=== PATIENT | female | born 1950 | race Caucasian/White ===

== ENCOUNTER 2017-09-30 09:08 | Emergency (ER) | payer BC ==
[~2017-09-30] VITALS: Ht 167.6 cm; Wt 63.5 kg
[2017-09-30] MEDS ORDERED: BREO INHALER (09:30)
== END 2017-09-30 12:24 | disposition home or self-care (01) ==
LOC: FSED 09:08
DX: R07.89 Other chest pain (principal); R11.0 Nausea; J44.9 Chronic obstructive pulmonary disease, unspecified; F17.210 Nicotine dependence, cigarettes, uncomplicated
CPT/HCPCS: 71046; 71260; 80053; 81003; 82553; 83880; 84484; 85025; 85379; 93005; 99284

== ENCOUNTER 2017-10-01 10:51 | Observation (INO) | payer BC ==
[~2017-10-01] VITALS: Ht 167.6 cm; Wt 63.5 kg
[2017-10-01 07:00] VITALS: BP 140/69
[~2017-10-01 10:51] MED LIST: BREO INHALER
[2017-10-01] MEDS ORDERED: ONDANSETRON HCL 4 MG ORAL DISINTEGRATING TAB PO ONE (11:30)
[2017-10-01] MEDS ORDERED: MORPHINE SULFATE 4 MG/ML SYR IV STA (12:41)
[2017-10-01] MEDS ORDERED: MORPHINE SULFATE 2 MG/ML SYR IV PRN (13:15)
[2017-10-01] MEDS ORDERED: FAMOTIDINE 20 MG TAB PO SCH (13:15)
[2017-10-01] MEDS ORDERED: ASPIRIN 81 MG CHEW TAB PO ONE (13:15)
[2017-10-01] MEDS ORDERED: NITROGLYCERIN 0.4 MG SUBL SL PRN (13:15)
[2017-10-01 16:50] VITALS: BP 185/88
[2017-10-01 17:00] VITALS: BP 185/88
[2017-10-01 17:48] LABS: CREATINE KINASE 169 IU/L (29-168)
[2017-10-01] MEDS ORDERED: ALBUTEROL/IPRATROPIUM 3 ML NEB NEB PRN (18:00)
[2017-10-01] MEDS ORDERED: CLONIDINE HCL 0.1 MG TAB PO PRN (18:00)
[2017-10-01] MEDS ORDERED: ENOXAPARIN SOD INJ 40 MG/0.4 ML SYR SC SCH (18:00)
[2017-10-01 18:09] LABS: CHOL/HDL RATIO 3.4 (3.0-3.6)
--- NOTE | 2017-10-01 18:31 | Diagnostic Imaging Report ---
PROCEDURE: CHEST SINGLE (PORTABLE); 1806 hrs. COMPARISON: None. INDICATIONS: chest pain/headache FINDINGS: LUNGS: Well inflated and clear. No mass or infiltrate PLEURA: No effusions or pneumothorax. HEART \T\ MEDIASTINUM: The heart is within normal size-limits. BONES \T\ SOFT TISSUES: The bones are intact. Soft tissues are unremarkable. CONCLUSION: No acute cardiopulmonary process. Dictated by: Lian Gutierres M.D. on 10/01/2017 at 18:32 Electronically approved by: Lian Gutierres M.D. on 10/01/2017 at 18:32
[2017-10-01 19:00] VITALS: BP 140/69
[2017-10-01 21:30] VITALS: BP 140/69
[2017-10-01] MEDS ORDERED: ACETAMINOPHEN 325 MG TAB PO PRN (21:45)
[2017-10-02] MEDS: FAMOTIDINE 20 MG TAB PO SCH ×2 (00:11→11:47)
[2017-10-02 00:19] VITALS: BP 111/52
[2017-10-02 04:15] VITALS: BP 131/60
[2017-10-02 06:46] LABS: BASOPHILS # (AUTO) 0.1 (0.0-0.1); BASOPHILS % 0.6 % (0.0-1.0); EOSINOPHILS # (AUTO) 0.2 (0.0-0.4); EOSINOPHILS % 1.8 % (0.0-6.0); HEMATOCRIT 44.6 % (34.2-44.1); HEMOGLOBIN 14.1 g/dL (12.0-16.0); LYMPHOCYTES # (AUTO) 2.9 (1.0-3.2); LYMPHOCYTES % 35.3 % (18.0-39.1); MEAN CORPUSCULAR HEMOGLOBIN 29.7 pg (28-32); MEAN CORPUSCULAR HGB CONC 31.6 g/dL (31-35); MEAN CORPUSCULAR VOLUME 94.1 fL (81-99); MONOCYTES # (AUTO) 0.5 (0.2-0.8); MONOCYTES % 5.8 % (4.4-11.3); NEUTROPHILS # (AUTO) 4.6 (2.1-6.9); NEUTROPHILS % 56.1 % (38.7-80.0); PLATELET COUNT 189 x10e3/uL (140-360); RED BLOOD COUNT 4.74 x10e6/uL (3.6-5.1); RED CELL DISTRIBUTION WIDTH 12.9 % (11.7-14.4)
[2017-10-02 07:03] LABS: INR 1.04; PROTHROMBIN TIME 12.8 seconds (11.9-14.5)
[2017-10-02 07:17] LABS: ALANINE AMINOTRANSFERASE 11 IU/L (0-55); ALBUMIN 3.4 g/dL (3.5-5.0); ALBUMIN/GLOBULIN RATIO 0.9 (0.8-2.0); ALKALINE PHOSPHATASE 63 IU/L (40-150); ANION GAP 11.5 mmol/L (8-16); BLOOD UREA NITROGEN 16 mg/dL (7-26); BUN/CREATININE RATIO 19 (6-25); CALCIUM 9.6 mg/dL (8.4-10.2); CARBON DIOXIDE 27 mmol/L (22-29); CHLORIDE 105 mmol/L (98-107); CHOL/HDL RATIO 3.7 (3.0-3.6); CHOLESTEROL 176 MD/DL (0-199); CREATININE, SERUM 0.85 mg/dL (0.57-1.11); EST GLOMERULAR FILTRATION RATE > 60 ML/MIN (60-); GLUCOSE 93 mg/dL (74-118); HDL CHOLESTEROL 47 MG/DL (40-60); LDL CHOLESTEROL 106 MG/DL (60-130); POTASSIUM 4.5 mmol/L (3.5-5.1); SODIUM 139 mmol/L (136-145); TRIGLYCERIDES 114 MG/DL (0-149)
[2017-10-02 07:28] LABS: THYROID STIMULATING HORMONE 1.097 uIU/mL (0.350-4.940)
[2017-10-02 07:35] LABS: CREATINE KINASE 65 IU/L (29-168)
[2017-10-02 07:56] VITALS: BP 137/73
[2017-10-02] MEDS ORDERED: ASPIRIN 325 MG TAB EC PO SCH (09:00)
--- NOTE | 2017-10-02 10:30 | Consultation ---
DATE OF CONSULTATION: October 02, 2017 CARDIAC CONSULTATION REASON FOR THE CONSULTATION: Chest pain. HISTORY: A 66-year-old lady, smoker, with diagnosis of COPD. Patient is relatively active. For the last week, she is having vague chest pain. She cannot describe it, sometimes it is sharp, sometimes it is dull. It is migratory type of pain, sometimes related to activity, sometimes not. The patient was frightened about that chest pain. She came to the emergency room. Her CT scan of the chest showed no pulmonary embolism, vertebral fractures were noted, it seems to be probably chronic, admitted for further management. Cardiac consultation is obtained. I visited with the patient. Cardiac-christiansen, she described above chest pain. She does have easy fatigability and shortness of breath. There is no orthopnea, no paroxysmal nocturnal dyspnea, no syncope, no presyncope. Unfortunately, she continues to smoke. REVIEW OF SYSTEMS: CARDIAC: As per above. PULMONARY: No recent travel. No pleuritic chest pain. No cough. No hemoptysis. GI: Occasional constipation. No hematemesis. No melena. No GERD symptoms. : No hematuria. No dysuria. MUSCULOSKELETAL: Headaches, cervical spine pain, back pain. NEUROLOGICAL: No seizure activity. No localized weakness. HEMATOLOGICAL: No easy bruising or bleeding. SOCIAL HISTORY: She is . She is smoker. She rarely has drinks. She is a clinical pharmacist. HOME MEDICATIONS: Just p.r.n. medications. ALLERGIES: NONE. PAST MEDICAL HISTORY: 1. COPD. 3. D and C. 3. Some fall and trauma in the [place] last year or the year before. FAMILY HISTORY: Father of myocardial infarction at age 74, he had bypass in his 60s. Mother of COPD complication at age 78. Two healthy brothers, 1 sister, 2 healthy daughters. PHYSICAL EXAMINATION: VITAL SIGNS: Height of 5 feet 6 inches, weight of 140 pounds, blood pressure 130/70, heart rate of 70, respiratory rate of 18. HEENT: Pupils are equal and reactive. NECK: No elevation of jugular venous pulsation. No bruit. CHEST: Clear to auscultation and percussion. HEART: PMI at fifth left intercostal space. Normal first and second heart sounds. ABDOMEN: Soft with good bowel sounds. No organomegaly. No abdominal bruits. EXTREMITIES: No cyanosis. No clubbing. No edema. NEUROLOGIC: Nonfocal. LAB DATA: Cardiac enzymes are normal. Electrolytes are normal. Hemoglobin of 14.1, hematocrit 44%. Triglyceride of 114, total cholesterol of 176, HDL of 47, LDL of 106, TSH of 1.09. CT scan, primary report that showed COPD changes and emphysema changes and evidence of compression fractures. EKG showed normal sinus rhythm. IMPRESSION AND PLAN: 1. Smoker. 2. History of chronic obstructive pulmonary disease. 3. Chest pain with vague characteristic, unable to describe, with normal cardiac enzymes. Differential diagnosis is discussed. From a cardiac point of view, I will proceed with a cardiac stress test. Explained to the patient and her daughter, even I explained the limitation of a negative stress test before the stress test just in case if her daughter not with her. Regarding her chronic obstructive pulmonary disease, emphysema, etc and her pulmonary condition and compression fracture, etc, I will leave it up to the medicine team and to her primary care physician. Will do her stress test and further recommendations after the stress test. Job#: [id number]
[2017-10-02 11:38] VITALS: BP 104/80
[2017-10-02] MEDS ORDERED: ACETAMINOPHEN 325 MG TAB PO PRN (12:00)
--- NOTE | 2017-10-02 12:27 | Cardiology Report ---
DATE OF STUDY: October 02, 2017 EXERCISE NUCLEAR STRESS TEST INDICATION FOR STUDY: Chest pain. TECHNICAL DETAILS: After risks, benefits, pros and cons of today's exercise nuclear stress test were explained to the patient, the patient agreed to proceed. She was brought down to the nuclear lab where she received a 10 mCi dose of technetium 99 tetrofosmin intravenously, and resting myocardial perfusion imaging was performed. Afterwards she was brought to the stress lab were 12-lead EKG monitoring and blood pressure monitoring were obtained. She exercised on a Ronnell protocol for a total duration of 4 minutes 54 seconds, and at a target heart rate of 3 minutes 41 seconds into the protocol she received a 33 mCi dose of technetium 99 tetrofosmin intravenously. She was exercised afterwards to circulate the radioisotope. Pulse went from a baseline of 91 beats per minute to a maximum of 152 beats per minute, which was above the target heart rate of 133 beats per minute, and blood pressure went from a baseline of 112/77 to a maximum of 156/103, which is an appropriate response. Baseline EKG revealed normal sinus rhythm, normal axis, nonspecific T-wave changes in AVL, and with exercise there were no ischemic EKG changes or symptoms. Protocol was terminated due to dyspnea. Afterwards she was then taken to the SPECT camera for stress myocardial perfusion imaging. FINDINGS 1. Resting myocardial perfusion imaging reveals normal tracer uptake and no scintigraphic areas of ischemia. 2. Stress myocardial perfusion imaging reveals normal tracer uptake and no scintigraphic areas of ischemia. 3. The following gated measurements were obtained: End-diastolic volume 43 mL, end-systolic volume 13 mL, calculated left ventricular ejection fraction was 69% with normal wall motion. CONCLUSIONS 1. Normal myocardial perfusion imaging study revealing normal tracer uptake and no scintigraphic areas of ischemia. 1. Exercise treadmill stress test portion of this exam showed no ischemic electrocardiographic changes and symptoms. 2. Normal left ventricular function with an ejection fraction of 69%. 3. Overall findings of this stress test are compatible with a low-risk nuclear stress test. 4. Findings of the study were explained to the patient including limitations. Job#: [id number] EV
[2017-10-03] MEDS ORDERED: ASPIRIN 325 MG TAB EC PO SCH (09:00)
== END 2017-10-02 13:15 | disposition home or self-care (01) ==
LOC: FSED 10:51 → IMCU 16:28
DX: R07.89 Other chest pain (principal); M48.54XA Collapsed vertebra, not elsewhere classified, thoracic region, initial encounter for fracture; F17.210 Nicotine dependence, cigarettes, uncomplicated; G43.909 Migraine, unspecified, not intractable, without status migrainosus; J44.9 Chronic obstructive pulmonary disease, unspecified; R91.1 Solitary pulmonary nodule
CPT/HCPCS: 36415 ×2; 71045; 71046; 78452; 80053 ×2; 80061 ×2; 81003; 82550 ×2; 82553 ×2; 83735; 84443; 84484 ×2; 85025 ×2; 85610 ×2; 93005 ×2; 93017; 93306; 96372; 99284; A9502; G0378 ×2; J1650; J2270 ×2